=== PATIENT | male | born 1955 | race African-American/Black ===

== ENCOUNTER 2018-04-23 10:45 | Outpatient (CLI) | payer OTHER ==
--- NOTE | 2018-04-23 13:43 | MRI ---
MRI CERVICAL SPINE WITHOUT IV CONTRAST: Date: 04/23/18 HISTORY: Cervical spondylosis with myelopathy. Left-sided weakness for 1 year. COMPARISON: None available. FINDINGS: There is mild volume loss involving the limited visualized base of the brain. Cervicomedullary juncti on has a normal MRI appearance. There is mild nonspecific heterogeneity of the bone marrow with increased T2-weighted subcentimeter f ocus in the C6 vertebral body which may represent a small hemangioma versus focal area of fat. C2-3 Level: There is disc osteophyte complex present nearing the ventral subarachnoid space. The yessi ral foramina are patent. C3-4 Level: There is a broad based disc osteophyte complex which effaces the ventral subarachnoid sp ramandeep and flattens the anterior aspect of the spinal cord, but there is normal signal intensity in the spinal cord. Mild facet degenerative changes are present at this level. There is moderate left and mi ld to moderate right-sided neural foraminal narrowing. C4-5 Level: There is a broad based disc osteophyte complex with a central disc protrusion. This narr ows the ventral subarachnoid space with flattening of the anterior aspect of the spinal cord, but the re is normal signal intensity in the spinal cord. There are mild facet degenerative changes present, greater on the left. Right neural foramen is patent, but there is mild left-sided neural foraminal na rrowing. C5-6 Level: There is a broad based disc osteophyte complex with central disc protrusion. There is na rrowing of the ventral subarachnoid space with resultant flattening of the anterior aspect of the spi nal cord. Neural foramina are patent. C6-7 Level: There is a mild disc osteophyte complex which narrows the ventral subarachnoid space. Th ere is slight flattening of the anterior aspect of the spinal cord with normal signal intensity in th e spinal cord. The right neural foramen is patent, but there is mild left-sided neural foraminal narr owing. C7-T1 Level: There is no disc bulge or disc herniation. The central spinal canal and neural foramina are patent. IMPRESSION: Multilevel degenerative changes in the cervical spine as described above. POS: EMILEE
--- NOTE | 2018-04-23 13:43 | MRI ---
NONCONTRAST MRI LUMBAR SPINE: Date: 04-23-18 History: Compression fracture. Patient complains of low back pain with left sided weakness for one ye ar. Comparison: CT abdomen and pelvis, 03-06-16. FINDINGS: Retroperitoneal structures demonstrate a normal MRI appearance. There is generalized heterogeneity of the bone marrow which is nonspecific and may be related to conv ersion to red marrow. There is remote compression fracture involving the superior endplate of the L1 vertebral body. Conus medullaris is normal in appearance and terminates at the superior endplate of the L2 vertebral body. T12-L1: There is minimal disc bulge. The central spinal canal and neural foramina are patent. L1-2: There is no significant disc bulge or disc herniation. Central spinal canal and neural foramina are patent. L2-3: There is minimal disc osteophyte complex present. Mild facet degenerative changes are normal. T he central spinal canal is patent. There is no significant bilateral neural foraminal narrowing. L3-4: There is a minimal disc osteophyte complex present with facet hypertrophic change and mild liga mentous thickening. There is no significant narrowing of the central spinal canal, but there is mild bilateral neural foraminal narrowing present. L4-5: There is a mild broad based disc osteophyte complex present. Facet hypertrophic changes and lig amentous thickening are noted. There is no significant narrowing of the central spinal canal. There i s mild bilateral neural foraminal narrowing, greater on the left. L5-S1: There is no disc bulge or disc herniation. Central spinal canal is patent. Facet hypertrophic changes are seen bilaterally which does result in mild to moderate bilateral neural foraminal narrowi ng. IMPRESSION: 1. Remote compression fracture superior endplate of L1 vertebral body with stable degree of height lo ss compared to the study in 2016. 2. Nonspecific heterogeneity of the bone marrow. 3. Mild degenerative changes in the lumbar spine. POS: EMILEE
== END 2018-04-23 10:46 | disposition home or self-care (01) ==
LOC: MRI 10:45
PROVIDERS: ATTEND Neurological Surgery
DX: M47.12 Other spondylosis with myelopathy, cervical region (principal); M47.816 Spondylosis without myelopathy or radiculopathy, lumbar region; M89.8X9 Other specified disorders of bone, unspecified site; Z87.81 Personal history of (healed) traumatic fracture
CPT/HCPCS: 72141; 72148

== ENCOUNTER 2019-07-15 02:25 | Day surgery (SDC) | payer OTHER, SELFPAY ==
--- NOTE | 2019-07-15 06:08 | OP ---
DATE OF PROCEDURE: 07/15/2019 PROCEDURES PERFORMED: 1. Esophagoscopy with disimpaction of esophageal foreign body. 2. Balloon dilation of the upper esophageal stricture to stage II with a balloon 12 to 15 mm. PREOPERATIVE DIAGNOSIS: Meat impaction. DESCRIPTION OF PROCEDURE: The patient was intubated and was given sedation by Anesthesia Department. The patient was turned onto his left lateral position. A bite block was placed. A Pentax videogastroscope under direct vision passed down the oropharynx into the upper esophagus. As soon as the scope entered the upper esophagus, he had a meat piece stuck there. Used difficult maneuvers to scope because of the location of the meat piece. Attempt was tried to snare it with polypectomy snare. Although the snare was encircled the meat piece, upon closing the meat piece did not break off. An IV glucagon 1 mg was given. After the IV glucagon insufflation, I was able to push the meat piece further into the distal esophagus and passed down. He had a very tight stricture in the area of impaction. The scope could not be advanced beyond the stricture. So, I elected to do balloon dilation with a balloon size 12 to 15 mm. The balloon was inflated to stage I for 2 minutes under endoscopic guidance and to stage II for another 2 more minutes. Following dilation, actually no change in the esophageal lumen seen. The stricture appears very tight and fibrotic and would not really open up. So, I elected to not do anymore dilation. The patient scope changed to a very slim scope and again another esophagoscopy was done. The endoscope could not be advanced past the stricture. The foreign body has gradually gone down into the esophagus. I am not sure if it gone all the way to stomach or it has gone beyond the stricture. I was able to advance the balloon down the esophagus easily without any resistance. The scope was removed. DISCHARGE PLANNING: This is a 63-year-old male came for EGD because of several foreign body. Initially, he was in [facility] and was transferred subsequently here. He underwent esophagoscopy with disimpaction. He also had a very tight upper esophageal stricture, which appears very fibrotic. Although the balloon dilation was carried out to stage II, the stricture would not open. So, I elected not to do anymore further dilation. The patient is being discharged back to retirement. We will try some clear liquids before he can go home. If he is able to swallow liquids without any coughing, choking, or vomiting, we will discharge the patient back to retirement. He will be brought back as an outpatient in the near future. He will need repeated dilatation, probably under fluoroscopic guidance because of the very tight stricture. The balloon dilation did not help and I believe mostly we need some Savary dilation under fluoroscopy guidance. Job ID: [id number]
--- NOTE | 2019-07-15 07:08 | HP ---
REASON FOR CONSULTATION: Dysphagia, food bolus impaction of the esophagus. HISTORY OF PRESENT ILLNESS: Mr. Vivian Joya is a 63-year-old male who is a jail resident in [place]. Apparently, he was eating some pork chops during dinner last night and got the meat stuck to esophagus. Subsequently, he tried to drink some water, and the water would not go down. He was seen in the ER in [place] and was given IV glucagon; however, he was not able to pass the food bolus down. The patient has had similar episodes in the past and usually he drinks some water or tries coughing. This time nothing really helped. He is very comfortable. Denies any chest discomfort or dyspnea. He had no other relevant history. ALLERGIES: PENICILLIN. SOCIAL HISTORY: The patient does not smoke or drink alcohol. MEDICAL ILLNESSES: 1. Hypertension. 2. Hypothyroidism. 3. Chronic anxiety. 4. Seizure disorder. 5. Coronary artery disease, status post stent placement in 1999. 6. He is status post CVA with residual left arm weakness. PAST SURGICAL HISTORY: No major surgeries except for stent placement in the past. FAMILY HISTORY: Hypertension, heart disease. MEDICATIONS: Include: 1. Keppra. 2. Lisinopril. 3. Levothyroxine. 4. Hydrocodone. 5. Clopidogrel. 6. Aspirin. 7. Xanax. SYSTEM REVIEW: A 10-point system review, unremarkable except he is not able to use his left arm. PHYSICAL EXAMINATION: GENERAL: Appears comfortable. He is awake, alert, oriented to time, place, and person. VITAL SIGNS: Stable. He is afebrile. Pulse is 76, and blood pressure 150/72. HEENT: Conjunctivae clear. NECK: Supple. No adenitis or thyromegaly noted. CARDIOVASCULAR SYSTEM: First and second heart sounds heard. LUNGS: Clear to auscultation. ABDOMEN: Soft. Abdomen is nondistended. Abdomen is nontender. There is no rebound or guarding. He has no operative scars. EXTREMITIES: No edema. He has weakness over the left upper extremity and immobility. LABORATORY DATA: Nothing done today. CLINICAL IMPRESSION: A 63-year-old male with dysphagia, food bolus impaction of the esophagus. He is clinically very stable. He is not frothing or coughing. PLAN: EGD and remove foreign body. I did see Mr. Joya in the ER and explained the procedure in detail. He was explained the risks of bleeding, aspiration, perforation. He fully understood and agreed. Job ID: [id number]
[2019-07-15] MEDS ORDERED: PROPOFOL 200 MG/20 ML VIAL ONE (09:46)
[2019-07-15] MEDS ORDERED: Esmolol 100 MG/10 ML VIAL ONE (09:46)
[2019-07-15] MEDS ORDERED: diphenhydrAMINE 50 MG/ML VIAL ONE (09:46)
[2019-07-15] MEDS ORDERED: Ondansetron PF 4 MG/2 ML Vial ONE (09:46)
== END 2019-07-15 06:36 ==
LOC: ERS 02:25 → SDC/OP 04:10
PROVIDERS: ATTEND Internal Medicine Gastroenterology
PROC: 0DC18ZZ Extirpation of Matter from Upper Esophagus, Via Natural or Artificial Opening Endoscopic (ICD-10-PCS; principal; 2019-07-15)
PROC: 0D718ZZ Dilation of Upper Esophagus, Via Natural or Artificial Opening Endoscopic (ICD-10-PCS; principal; 2019-07-15)
DX: T18.128A Food in esophagus causing other injury, initial encounter (principal); K22.2 Esophageal obstruction; I10 Essential (primary) hypertension; E03.9 Hypothyroidism, unspecified; F41.9 Anxiety disorder, unspecified; G40.909 Epilepsy, unspecified, not intractable, without status epilepticus; I25.110 Atherosclerotic heart disease of native coronary artery with unstable angina pectoris; I69.334 Monoplegia of upper limb following cerebral infarction affecting left non-dominant side; E78.5 Hyperlipidemia, unspecified; E11.9 Type 2 diabetes mellitus without complications; F17.220 Nicotine dependence, chewing tobacco, uncomplicated; F12.10 Cannabis abuse, uncomplicated; F14.10 Cocaine abuse, uncomplicated; Z79.02 Long term (current) use of antithrombotics/antiplatelets; Z79.84 Long term (current) use of oral hypoglycemic drugs; Z79.82 Long term (current) use of aspirin; Z79.899 Other long term (current) drug therapy; Z88.0 Allergy status to penicillin; Z95.5 Presence of coronary angioplasty implant and graft
CPT/HCPCS: 96365; J1200; J1610; J1953; J2405; J2704

== ENCOUNTER 2022-05-08 13:57 | Inpatient (IN) | payer OTHER ==
[2022-05-08 17:58] VITALS: BMI 28.2
[2022-05-08] MEDS ORDERED: Aspirin 81 mg Enteric Coated Tablet PO SCH (18:15)
[2022-05-08] MEDS ORDERED: Enoxaparin Sodium 40 MG/0.4 ML SYRINGE SC SCH (18:15)
[2022-05-08] MEDS: Atorvastatin Calcium 40 MG TAB PO SCH (21:03)
[2022-05-09 01:21] LABS: SARS-CoV-2 NAA Rapid Test Not Detected (NotDetected)
[2022-05-09 05:58] LABS: Cardiac Risk 3.3 (Less than 4.5)
[2022-05-09] MEDS: Aspirin 81 mg Enteric Coated Tablet PO SCH (08:57)
[2022-05-09] MEDS: Enoxaparin Sodium 40 MG/0.4 ML SYRINGE SC SCH (08:57)
[2022-05-09] MEDS: Clopidogrel Bisulfate 75 MG TAB PO SCH (08:57)
[2022-05-09] MEDS ORDERED: ALPRAZolam 0.25 MG TAB PO PRN (09:07)
[2022-05-09] MEDS ORDERED: levETIRAcetam 500 MG TAB PO SCH ×2 (09:15→21:00)
[2022-05-09] MEDS ORDERED: Dextrose 5% in Water 1,000 ML IV PRN (10:17)
[2022-05-09] MEDS ORDERED: Dextrose 50% Abboject 50 ML SYRINGE SLOW IVP PRN (10:17)
[2022-05-09] MEDS ORDERED: HumaLOG 300 UNITS/3 ML VIAL SC PRN (10:17)
[2022-05-09] MEDS: Gabapentin 300 MG CAP PO SCH ×2 (15:04→20:58)
[2022-05-09] MEDS: levETIRAcetam 500 mg/5 ml Oral Solution PO SCH (20:58)
[2022-05-09] MEDS: Atorvastatin Calcium 40 MG TAB PO SCH (20:58)
[2022-05-10] MEDS ORDERED: Levothyroxine Sodium 75 MCG TAB PO SCH (06:00)
[2022-05-10 06:44] LABS: Anion Gap 13 mmol/L (10-20); BUN (Urea Nitrogen) 9 mg/dL (8.4-25.7); Calc. Creatinine Clearance 85 mL/min (70-130); Calcium 10.2 mg/dL (7.8-10.44); Carbon Dioxide 22 mmol/L (23-31); Chloride 106 mmol/L (98-107); Estimated GFR 88; Glucose 85 mg/dL (80-115); Potassium 3.8 mmol/L (3.5-5.1); Sodium 137 mmol/L (136-145)
[2022-05-10 09:58] LABS: Hemoglobin 16.5 g/dL (14.0-18.0); Mean Corpuscular HGB CONC 32.8 g/dL (32.0-36.0); Mean Corpuscular Hemoglobin 30.8 pg (27.0-31.0); Mean Corpuscular Volume 94.1 fl (78.0-98.0); Mean Platelet Volume 6.8 fL (7.4-10.4); Platelet Count 231 10x3/uL (130-400); RBC Distribution Width 12.6 % (11.5-14.5); Red Blood Cell (RBC) Count 5.34 mill/uL (4.70-6.10)
[2022-05-10] MEDS: Enoxaparin Sodium 40 MG/0.4 ML SYRINGE SC SCH (09:59)
[2022-05-10] MEDS: levETIRAcetam 500 mg/5 ml Oral Solution PO SCH (09:59)
[2022-05-10] MEDS: Gabapentin 300 MG CAP PO SCH ×2 (09:59→15:40)
[2022-05-10] MEDS: Aspirin 81 mg Enteric Coated Tablet PO SCH (09:59)
[2022-05-10] MEDS: Clopidogrel Bisulfate 75 MG TAB PO SCH (09:59)
[2022-05-10 12:12] LABS: Eosinophils 4 % (0-10); Lymphocytes 50 % (21-51); MDiff Complete? YES; Monocytes 5 % (0-10); Neutrophil 41 % (42-75); Platelet Morphology Comment Appears Adequate; RBC Morphology Normal
[2022-05-10 15:39] VITALS: TEMP 97.6
[2022-05-10 16:20] VITALS: BP 130/86
[2022-05-11] MEDS ORDERED: FLU VACC QS2022-23(65YR UP)/PF 240 MCG/0.7 ML SYRINGE IM ONE (18:15)
== END 2022-05-10 19:15 | DRG 69 ==
LOC: NEURO 13:57
PROVIDERS: ADMIT Internal Medicine; ATTEND Family Medicine
PROC: 4A10X4Z Monitoring of Central Nervous Electrical Activity, External Approach (ICD-10-PCS; principal; 2022-05-08)
DX: G45.9 Transient cerebral ischemic attack, unspecified (principal); I69.354 Hemiplegia and hemiparesis following cerebral infarction affecting left non-dominant side; I65.21 Occlusion and stenosis of right carotid artery; E11.9 Type 2 diabetes mellitus without complications; I10 Essential (primary) hypertension; E78.5 Hyperlipidemia, unspecified; I25.10 Atherosclerotic heart disease of native coronary artery without angina pectoris; K21.9 Gastro-esophageal reflux disease without esophagitis; G40.909 Epilepsy, unspecified, not intractable, without status epilepticus; Z20.822 Contact with and (suspected) exposure to COVID-19; Z88.0 Allergy status to penicillin; Z79.82 Long term (current) use of aspirin; Z79.899 Other long term (current) drug therapy; Z95.5 Presence of coronary angioplasty implant and graft
CPT/HCPCS: 36415; 36416; 70551; 80048; 80061; 85025; 93306; 95712; 95819; 95957; J1650

== ENCOUNTER 2022-07-22 18:00 | Outpatient (CLI) | payer MEDICARE, OTHER | END 2022-07-22 18:01 | disposition home or self-care (01) | LOC: SLEEPLAB 18:00 | PROVIDERS: ATTEND Family Medicine | DX: G47.33 Obstructive sleep apnea (adult) (pediatric) (principal); E11.9 Type 2 diabetes mellitus without complications; G47.00 Insomnia, unspecified; Z86.73 Personal history of transient ischemic attack (TIA), and cerebral infarction without residual deficits; I25.10 Atherosclerotic heart disease of native coronary artery without angina pectoris; G47.31 Primary central sleep apnea | CPT/HCPCS: 95800 ==

== ENCOUNTER 2022-12-22 11:38 | Observation (INO) | payer OTHER ==
[~2022-12-22 11:38] MED LIST: Iopamidol-370 76% 500 ML MDV (1 ML CHARGE) ONE
[2022-12-22 12:18] LABS: #Eosinphils 0.1 thou/uL (0.0-0.7); #Monocytes 0.5 thou/uL (0.11-0.59); #Neutrophils 3.8 thou/uL (1.40-6.50); %Basophils 0.3 % (0.0-1.0); %Eosinophils 1.5 % (0.0-10.0); %Lymphocytes 32.9 % (21.0-51.0); %Monocytes 7.7 % (0.0-10.0); %Neutrophils 57.4 % (42.0-75.0); Hemoglobin 14.5 g/dL (14.0-18.0); Mean Corpuscular Hemoglobin 30.8 pg (27.0-31.0); Mean Corpuscular Volume 93.2 fl (78.0-98.0); Mean Platelet Volume 8.9 fL (7.4-10.4); Platelet Count 212 10x3/uL (130-400); RBC Distribution Width 13.7 % (11.5-14.5); Red Blood Cell (RBC) Count 4.71 mill/uL (4.70-6.10); White Blood Cell (WBC) Count 6.5 10x3/uL (4.8-10.8)
[2022-12-22 12:32] LABS: INR-International Normal Ratio 1.1; PTT 26.4 sec (22.9-36.1); Prothrombin Time 14.1 sec (12.0-14.7)
[2022-12-22] MEDS ORDERED: Aspirin Chewable 81 MG TAB ONE (13:11)
[2022-12-22 13:14] LABS: ALT (SGPT) 15 U/L (8-55); AST (SGOT) 15 U/L (5-34); Alkaline Phosphatase 117 U/L (40-110); Anion Gap 16 mmol/L (10-20); BUN (Urea Nitrogen) 10 mg/dL (8.4-25.7); Bilirubin, Total 0.3 mg/dL (0.2-1.2); CK (CPK) 81 U/L (30-200); Calc. Creatinine Clearance 0 mL/min (70-130); Calcium 10.7 mg/dL (7.8-10.44); Carbon Dioxide 20 mmol/L (23-31); Chloride 104 mmol/L (98-107); Estimated GFR 89; Glucose 102 mg/dL (80-115); Magnesium 1.9 mg/dL (1.6-2.6); Potassium 3.9 mmol/L (3.5-5.1); Sodium 136 mmol/L (136-145)
[2022-12-22 14:20] LABS: Bacteria/HPF None Seen HPF (None Seen); Bilirubin Negative (Negative); Blood, Urine Negative (Negative); CAUTI Indications for Culture Alt mental st,lethar; Clarity Clear (Clear); Glucose, Urine (Dipstick) Normal (Negative); Ketone, Urine Negative (Negative); Leukocyte 75 Leu/uL (Negative); Nitrite Negative (Negative); Protein, Urine (Dipstick) Negative (Neg-Trace); RBC/HPF 0-3 HPF (0-3); Specific Gravity, Urine 1.023 (1.002-1.036); Squamous Epithelial 0-3 HPF (0-3); Urobilinogen Normal mg/dL (Less than 2)
[2022-12-22 14:23] LABS: Urine Culture Reflex No No
[2022-12-22 14:44] LABS: Hemoglobin A1c 5.5 % (4.0-6.0)
[2022-12-22] MEDS: Nicotine 14 MG PATCH TD SCH (16:20)
[2022-12-23 05:41] LABS: Cardiac Risk 3.3 (Less than 4.5)
[2022-12-23 08:34] VITALS: BMI 28.0
[2022-12-23] MEDS ORDERED: Aspirin 81 mg Enteric Coated Tablet PO SCH (09:00)
[2022-12-23] MEDS ORDERED: levETIRAcetam 500 MG TAB PO SCH ×2 (09:30→21:00)
[2022-12-23] MEDS ORDERED: Nicotine 14 MG PATCH ONE (10:57)
[2022-12-23] MEDS: Nicotine 14 MG PATCH TD SCH (11:01)
[2022-12-23] MEDS: Gabapentin 300 MG CAP PO SCH ×2 (15:08→19:54)
[2022-12-23] MEDS ORDERED: Clopidogrel Bisulfate 75 MG TAB PO SCH (17:30)
[2022-12-23 20:06] VITALS: BP 150/101; TEMP 97.6
[2022-12-23] MEDS ORDERED: Heparin 5,000 UNITS/ML VIAL SC SCH (21:00)
[2022-12-23] MEDS ORDERED: Atorvastatin Calcium 40 MG TAB PO SCH (21:00)
[2022-12-24] MEDS ORDERED: Levothyroxine Sodium 75 MCG TAB PO SCH (06:00)
[2022-12-24] MEDS ORDERED: Levothyroxine Sodium 50 MCG TAB PO SCH (06:00)
[2022-12-24] MEDS ORDERED: Clopidogrel Bisulfate 75 MG TAB PO SCH (21:00)
== END 2022-12-23 21:00 ==
LOC: ERS 11:38 → 2SE 13:57 → ERHOLD 14:09 → 2SE 12-23 14:18
PROVIDERS: ADMIT Internal Medicine; ATTEND Internal Medicine
DX: G45.9 Transient cerebral ischemic attack, unspecified (principal); E78.5 Hyperlipidemia, unspecified; E03.9 Hypothyroidism, unspecified; I12.9 Hypertensive chronic kidney disease with stage 1 through stage 4 chronic kidney disease, or unspecified chronic kidney disease; N18.2 Chronic kidney disease, stage 2 (mild); I25.2 Old myocardial infarction; E11.9 Type 2 diabetes mellitus without complications; I25.10 Atherosclerotic heart disease of native coronary artery without angina pectoris; G40.909 Epilepsy, unspecified, not intractable, without status epilepticus; F19.10 Other psychoactive substance abuse, uncomplicated; D50.9 Iron deficiency anemia, unspecified; Z79.890 Hormone replacement therapy; Z79.82 Long term (current) use of aspirin; Z79.899 Other long term (current) drug therapy; Z79.84 Long term (current) use of oral hypoglycemic drugs; Z86.73 Personal history of transient ischemic attack (TIA), and cerebral infarction without residual deficits; Z88.0 Allergy status to penicillin; Z95.5 Presence of coronary angioplasty implant and graft
CPT/HCPCS: 70450; 70496; 70498; 70551; 71045; 80061; 81001; 82550; 82962; 83036; 83735; 84484; 85610; 85730; 93005; 97530; 99285; G0378 ×3; 36415; 36416; 80053; 84443; 85025; Q9967

== ENCOUNTER 2023-08-05 16:49 | Inpatient (IN) | payer MEDICARE, MEDICAID ==
[2023-08-05 17:43] LABS: #Monocytes 0.6 thou/uL (0.11-0.59); %Basophils 0.2 % (0.0-1.0); %Lymphocytes 15.5 % (21.0-51.0); %Monocytes 6.7 % (0.0-10.0); %Neutrophils 77.3 % (42.0-75.0); Hematocrit 52.2 % (42.0-52.0); Hemoglobin 17.5 g/dL (14.0-18.0); Mean Corpuscular HGB CONC 33.5 g/dL (32.0-36.0); Mean Corpuscular Hemoglobin 30.2 pg (27.0-31.0); Mean Platelet Volume 9.5 fL (7.4-10.4); Platelet Count 226 10x3/uL (130-400); RBC Distribution Width 13.2 % (11.5-14.5)
[2023-08-05 19:23] LABS: Bacteria/HPF 3+ HPF (None Seen); Bilirubin Negative (Negative); Blood, Urine 3+ (Negative); CAUTI Indications for Culture Alt mental st,lethar; Clarity Clear (Clear); Glucose, Urine (Dipstick) Normal (Negative); Ketone, Urine Negative (Negative); Leukocyte Negative Leu/uL (Negative); Nitrite Negative (Negative); Protein, Urine (Dipstick) 30 mg/dL (Neg-Trace); Squamous Epithelial 0-3 HPF (0-3); pH, Urine 6.5 (5.0-9.0)
[2023-08-05 19:24] LABS: Urine Culture Reflex No No
[2023-08-05 19:26] LABS: INR-International Normal Ratio 1.1; Prothrombin Time 13.8 sec (12.0-14.7)
[2023-08-05 19:27] LABS: PTT 29.5 sec (22.9-36.1)
[2023-08-05 20:47] LABS: Albumin 4.3 g/dL (3.4-4.8)
[2023-08-05 20:48] LABS: Chloride 98 mmol/L (98-107); Sodium 131 mmol/L (136-145)
[2023-08-05 20:49] LABS: Calcium 10.4 mg/dL (7.8-10.44)
[2023-08-05 20:50] LABS: Globulin 3.6 g/dL (2.4-3.5); Glucose 93 mg/dL (80-115); Protein, Total 7.9 g/dL (5.8-8.1)
[2023-08-05 20:51] LABS: Anion Gap 13 mmol/L (10-20); Carbon Dioxide 24 mmol/L (23-31)
[2023-08-05 20:52] LABS: Bilirubin, Total 0.6 mg/dL (0.2-1.2)
[2023-08-05 20:53] LABS: Alkaline Phosphatase 102 U/L (40-110); Calc. Creatinine Clearance 0 mL/min (70-130); Estimated GFR 69
[2023-08-05 20:54] LABS: BUN (Urea Nitrogen) 11 mg/dL (8.4-25.7)
[2023-08-05 20:55] LABS: ALT (SGPT) 31 U/L (8-55); AST (SGOT) 94 U/L (5-34)
[2023-08-05 21:08] LABS: CK (CPK) 4985 U/L (30-200)
[2023-08-05] MEDS ORDERED: Acetaminophen 325 MG TAB PO PRN (21:24)
[2023-08-05] MEDS ORDERED: Ondansetron PF 4 MG/2 ML Vial IVP PRN (21:24)
[2023-08-05 21:25] LABS: Amphetamine Not Detected (NotDetected); Barbiturates Screen Not Detected (NotDetected); Benzodiazepine Screen Not Detected (NotDetected); Cocaine Metabolite Screen Not Detected (NotDetected); Methadone Not Detected (NotDetected); Methamphetamine Not Detected (NotDetected); Opiate Screen Not Detected (NotDetected); Oxycodone Screen Not Detected (NotDetected); Phencyclidine (PCP) Not Detected (NotDetected); THC/Cannabinoid Screen Not Detected (NotDetected); Tricyclic Screen Not Detected (NotDetected)
[2023-08-05] MEDS ORDERED: Glucagon 1 MG/ML KIT IM PRN (21:27)
[2023-08-05] MEDS ORDERED: HumaLOG 300 UNITS/3 ML VIAL SC PRN ×2 (21:27)
[2023-08-05] MEDS ORDERED: Dextrose 50% Abboject 50 ML SYRINGE SLOW IVP PRN (21:27)
[2023-08-05] MEDS ORDERED: Dextrose 5% in Water 1,000 ML IV PRN (21:27)
[2023-08-05 22:05] LABS: Actual Bicarbonate (HCO3v) 24.1 mEq/L (22-28); Base Excess 0.9 mEq/L (-2.0 to +3.0); Calcium, Ionized (venous) 1.25 mmol/L (1.16-1.32); Chloride (VBG) 97 mmol/L (98-106); Hematocrit-VBG 50 % (42.0-52.0); Hemoglobin (Hb) 16.9 g/dL (12.6-17.4); Potassium (VBG) 4.05 mmol/L (3.70-5.30); Sodium 135 mmol/L (133-146)
[2023-08-05] MEDS: levETIRAcetam 500 MG (5 mL) VIAL SLOW IVP SCH (22:30)
[2023-08-05] MEDS: Sodium Chloride 0.9% 1,000 ML IV SCH (22:30)
[2023-08-05] MEDS ORDERED: Vancomycin 1 GM/200 ML (FROZEN) BAG ONE (22:40)
[2023-08-05] MEDS ORDERED: levETIRAcetam 500 MG (5 mL) VIAL ONE (22:40)
[2023-08-05] MEDS ORDERED: Acetaminophen 650 MG Suppository ONE (22:40)
[2023-08-05] MEDS ORDERED: Sodium Chloride 0.9% 100 ML ONE (22:41)
[2023-08-05] MEDS: Acetaminophen 650 MG Suppository PR PRN (22:54)
[2023-08-06] MEDS: Cefepime 1 GM in Sodium Chloride 0.9% 100 ML IVPB SCH (01:00)
[2023-08-06] MEDS ORDERED: Sodium Chloride 0.9% 100 ML ONE (04:04)
[2023-08-06] MEDS ORDERED: Aspirin Chewable 81 MG TAB ONE ×2 (04:04→08:26)
[2023-08-06] MEDS ORDERED: Cefepime 1 GM VIAL ONE (04:04)
[2023-08-06 05:33] LABS: #Monocytes 0.5 thou/uL (0.11-0.59); #Neutrophils 3.3 thou/uL (1.40-6.50); %Basophils 0.3 % (0.0-1.0); %Lymphocytes 37.2 % (21.0-51.0); %Monocytes 8.9 % (0.0-10.0); %Neutrophils 53.4 % (42.0-75.0); Hematocrit 48.9 % (42.0-52.0); Hemoglobin 16.8 g/dL (14.0-18.0); Mean Corpuscular HGB CONC 34.4 g/dL (32.0-36.0); Mean Corpuscular Hemoglobin 30.8 pg (27.0-31.0); Mean Corpuscular Volume 89.7 fl (78.0-98.0); Mean Platelet Volume 8.8 fL (7.4-10.4); Platelet Count 179 10x3/uL (130-400); RBC Distribution Width 13.2 % (11.5-14.5); Red Blood Cell (RBC) Count 5.45 mill/uL (4.70-6.10); White Blood Cell (WBC) Count 6.1 10x3/uL (4.8-10.8)
[2023-08-06 05:43] LABS: Hemoglobin A1c 5.9 % (4.0-6.0)
[2023-08-06] MEDS: Aspirin 81 mg Enteric Coated Tablet PO SCH ×2 (05:46→09:19)
[2023-08-06 06:02] LABS: Anion Gap 12 mmol/L (10-20); BUN (Urea Nitrogen) 11 mg/dL (8.4-25.7); Calc. Creatinine Clearance 0 mL/min (70-130); Calcium 9.4 mg/dL (7.8-10.44); Carbon Dioxide 23 mmol/L (23-31); Cardiac Risk 4.4 (Less than 4.5); Chloride 105 mmol/L (98-107); Cholesterol 191 mg/dl (< 200 Desired); Estimated GFR 83; Glucose 85 mg/dL (80-115); HDL Cholesterol 43 mg/dL (>60 Neg Risk); LDL Cholesterol, Calculated 137 mg/dL; Potassium 3.6 mmol/L (3.5-5.1); Sodium 136 mmol/L (136-145); Triglycerides 53 mg/dL (Less than 150)
[2023-08-06 06:03] LABS: ALT (SGPT) 45 U/L (8-55); AST (SGOT) 153 U/L (5-34); Albumin 3.7 g/dL (3.4-4.8); Alkaline Phosphatase 88 U/L (40-110); Bilirubin, Direct 0.2 mg/dL (0.1-0.3); Bilirubin, Total 0.5 mg/dL (0.2-1.2); Protein, Total 6.9 g/dL (5.8-8.1)
[2023-08-06 06:15] LABS: CK (CPK) 7535 U/L (30-200)
[2023-08-06 06:19] VITALS: BMI 23.1
[2023-08-06] MEDS: Vancomycin (BATCH) 1.5 GM in Premix 1 BAG IVPB SCH (08:09)
[2023-08-06] MEDS ORDERED: Clopidogrel Bisulfate 75 MG TAB ONE (08:26)
[2023-08-06] MEDS ORDERED: levETIRAcetam 500 MG TAB ONE ×2 (08:26→21:43)
[2023-08-06 08:41] LABS: Influenza A by NAA Not Detected (NotDetected); Influenza B by NAA Not Detected (NotDetected); RSV by NAA Not Detected (NotDetected); SARS-CoV-2 NAA Rapid Test Not Detected (NotDetected)
[2023-08-06] MEDS: levETIRAcetam 500 MG TAB PO SCH (09:20)
[2023-08-06] MEDS: Clopidogrel Bisulfate 75 MG TAB PO SCH (09:20)
[2023-08-06] MEDS ORDERED: Vancomycin 1 GM/200 ML (FROZEN) BAG ONE (17:30)
[2023-08-06] MEDS: Vancomycin 1 GM in Premix 1 BAG IVPB SCH (17:44)
[2023-08-06] MEDS ORDERED: Vancomycin HCl 750 MG in Sodium Chloride 0.9% 250 ML 250 ML IVPB SCH (18:00)
[2023-08-07] MEDS: Artificial Tear Sol 15 ML BOT EA EYE SCH (01:21)
[2023-08-07] MEDS: Cefepime 1 GM in Sodium Chloride 0.9% 100 ML IVPB SCH (01:53)
[2023-08-07] MEDS: Levothyroxine Sodium 75 MCG TAB PO SCH (06:04)
[2023-08-07 06:26] LABS: #Monocytes 0.6 thou/uL (0.11-0.59); #Neutrophils 3.9 thou/uL (1.40-6.50); %Basophils 0.1 % (0.0-1.0); %Eosinophils 0.1 % (0.0-10.0); %Lymphocytes 34.3 % (21.0-51.0); %Monocytes 8.1 % (0.0-10.0); %Neutrophils 57.3 % (42.0-75.0); Hematocrit 44.1 % (42.0-52.0); Hemoglobin 15.2 g/dL (14.0-18.0); Mean Corpuscular HGB CONC 34.5 g/dL (32.0-36.0); Mean Corpuscular Hemoglobin 30.3 pg (27.0-31.0); Mean Corpuscular Volume 87.8 fl (78.0-98.0); Platelet Count 202 10x3/uL (130-400); Red Blood Cell (RBC) Count 5.02 mill/uL (4.70-6.10); White Blood Cell (WBC) Count 6.8 10x3/uL (4.8-10.8)
[2023-08-07 06:50] LABS: Anion Gap 13 mmol/L (10-20); BUN (Urea Nitrogen) 10 mg/dL (8.4-25.7); Calc. Creatinine Clearance 86 mL/min (70-130); Calcium 9.6 mg/dL (7.8-10.44); Carbon Dioxide 24 mmol/L (23-31); Chloride 106 mmol/L (98-107); Estimated GFR 94; Glucose 102 mg/dL (80-115); Potassium 3.9 mmol/L (3.5-5.1); Sodium 139 mmol/L (136-145)
[2023-08-07 07:15] LABS: CK (CPK) 5439 U/L (30-200)
[2023-08-07] MEDS: Latanoprost 0.005% Ophth Soln 2.5 ml Bottle R EYE SCH ×2 (09:25→20:18)
[2023-08-07] MEDS: metFORMIN 500 MG TAB PO SCH (09:25)
[2023-08-07] MEDS: Cefepime 2 GM in Sodium Chloride 0.9% 100 ML IVPB SCH (13:13)
[2023-08-07] MEDS ORDERED: Vancomycin 1 GM in Premix 1 BAG IVPB SCH ×2 (15:45→20:00)
[2023-08-07 19:06] LABS: Vancomycin, Trough 9.4 ug/mL
[2023-08-07] MEDS: Vancomycin (BATCH) 1.25 GM in Premix 1 BAG IVPB SCH (20:17)
[2023-08-07] MEDS: SYSTANE 0.3-0.4% EYE DROPS (30 ML) EA EYE SCH (20:19)
[2023-08-07] MEDS: traZODone HCl 50 MG TAB PO SCH (21:46)
[2023-08-08 05:54] LABS: #Eosinphils 0.1 thou/uL (0.0-0.7); #Monocytes 0.6 thou/uL (0.11-0.59); #Neutrophils 3.3 thou/uL (1.40-6.50); %Basophils 0.4 % (0.0-1.0); %Eosinophils 1.5 % (0.0-10.0); %Lymphocytes 41.2 % (21.0-51.0); %Neutrophils 48.8 % (42.0-75.0); Hematocrit 45.2 % (42.0-52.0); Hemoglobin 15.2 g/dL (14.0-18.0); Mean Corpuscular HGB CONC 33.6 g/dL (32.0-36.0); Mean Corpuscular Hemoglobin 30.1 pg (27.0-31.0); Mean Corpuscular Volume 89.5 fl (78.0-98.0); Mean Platelet Volume 9.5 fL (7.4-10.4); Platelet Count 232 10x3/uL (130-400); RBC Distribution Width 13.1 % (11.5-14.5); Red Blood Cell (RBC) Count 5.05 mill/uL (4.70-6.10); White Blood Cell (WBC) Count 6.9 10x3/uL (4.8-10.8)
[2023-08-08 06:32] LABS: Anion Gap 15 mmol/L (10-20); BUN (Urea Nitrogen) 10 mg/dL (8.4-25.7); Calc. Creatinine Clearance 78 mL/min (70-130); Calcium 9.7 mg/dL (7.8-10.44); Carbon Dioxide 21 mmol/L (23-31); Chloride 108 mmol/L (98-107); Estimated GFR 85; Glucose 79 mg/dL (80-115); Potassium 4.3 mmol/L (3.5-5.1); Sodium 140 mmol/L (136-145)
[2023-08-08] MEDS: Aspirin Chewable 81 MG TAB PO SCH (08:59)
[2023-08-08] MEDS: traZODone HCl 50 MG TAB PO SCH (20:10)
[2023-08-09] MEDS: Atorvastatin Calcium 40 MG TAB PO SCH (20:43)
[2023-08-10] MEDS: LevoFLOXacin 750 MG TAB PO SCH (06:18)
[2023-08-10 14:26] VITALS: BP 111/75; TEMP 97.8
== END 2023-08-10 15:00 | DRG 69 ==
LOC: ERS 16:49 → ERHOLD 20:41 → 2SE 08-06 23:48
PROVIDERS: ADMIT Internal Medicine; ATTEND Internal Medicine
PROC: 4A00X4Z Measurement of Central Nervous Electrical Activity, External Approach (ICD-10-PCS; principal; 2023-08-06)
DX: G45.9 Transient cerebral ischemic attack, unspecified (principal); G93.41 Metabolic encephalopathy; M62.82 Rhabdomyolysis; E87.1 Hypo-osmolality and hyponatremia; I50.32 Chronic diastolic (congestive) heart failure; N39.0 Urinary tract infection, site not specified; I25.10 Atherosclerotic heart disease of native coronary artery without angina pectoris; E78.5 Hyperlipidemia, unspecified; E11.9 Type 2 diabetes mellitus without complications; I11.0 Hypertensive heart disease with heart failure; D50.9 Iron deficiency anemia, unspecified; G40.909 Epilepsy, unspecified, not intractable, without status epilepticus; E03.9 Hypothyroidism, unspecified; B96.1 Klebsiella pneumoniae [K. pneumoniae] as the cause of diseases classified elsewhere; Z86.73 Personal history of transient ischemic attack (TIA), and cerebral infarction without residual deficits; I25.2 Old myocardial infarction; Z88.0 Allergy status to penicillin; Z79.82 Long term (current) use of aspirin; Z79.02 Long term (current) use of antithrombotics/antiplatelets; Z79.84 Long term (current) use of oral hypoglycemic drugs; Z79.899 Other long term (current) drug therapy; Z95.9 Presence of cardiac and vascular implant and graft, unspecified
CPT/HCPCS: 0241U; 36415; 36416; 70450; 70496; 70498; 70551; 71045; 80048; 80053; 80061; 80076; 80202; 80306; 81001; 82550; 82805; 83036; 83605; 84145; 84443; 85025; 85610; 85730; 87040; 87077; 87086; 87149; 87186; 93005; 93306; 95711; 95819; J0692; J1953; J3370; J3370-JW; J3490; J7050; Q9967

== ENCOUNTER 2024-03-23 13:39 | Inpatient (IN) | payer MEDICARE, MEDICAID ==
[2024-03-23 16:17] LABS: #Basophils Less than 0.03 10x3/uL (0.0-0.2); %Basophils 0.4 % (0.0-1.0); %Lymphocytes 42.5 % (21.0-51.0); %Monocytes 4.4 % (0.0-10.0); %Neutrophils 50.7 % (42.0-75.0); Hematocrit 46.1 % (42.0-52.0); Hemoglobin 15.5 g/dL (14.0-18.0); Mean Corpuscular HGB CONC 33.6 g/dL (32.0-36.0); Mean Corpuscular Hemoglobin 29.9 pg (27.0-31.0); Mean Platelet Volume 9.7 fL (7.4-10.4); Platelet Count 176 10x3/uL (130-400); RBC Distribution Width 13.4 % (11.5-14.5); Red Blood Cell (RBC) Count 5.18 mill/uL (4.70-6.10)
[2024-03-23 16:43] LABS: ALT (SGPT) 14 U/L (8-55); AST (SGOT) 15 U/L (5-34); Alkaline Phosphatase 136 U/L (40-110); Anion Gap 14 mmol/L (10-20); BUN (Urea Nitrogen) 11 mg/dL (8.4-25.7); Bilirubin, Total 0.4 mg/dL (0.2-1.2); Calc. Creatinine Clearance 0 mL/min (70-130); Calcium 10.8 mg/dL (7.8-10.44); Carbon Dioxide 29 mmol/L (23-31); Chloride 103 mmol/L (98-107); Estimated GFR 82; Globulin 3.8 g/dL (2.4-3.5); Glucose 84 mg/dL (80-115); Potassium 3.9 mmol/L (3.5-5.1); Protein, Total 7.8 g/dL (5.8-8.1); Sodium 142 mmol/L (136-145)
[2024-03-23 16:55] LABS: Troponin I Less than 0.010 ng/mL (< 0.028)
[2024-03-23] MEDS ORDERED: Aspirin Chewable 81 MG TAB ONE (17:34)
[2024-03-23] MEDS ORDERED: Ondansetron ODT 4 MG TAB PO PRN (18:24)
[2024-03-23] MEDS ORDERED: Dextrose 50% Abboject 50 ML SYRINGE SLOW IVP PRN (18:24)
[2024-03-23] MEDS ORDERED: Ondansetron PF 4 MG/2 ML Vial IVP PRN (18:24)
[2024-03-23] MEDS ORDERED: Nitroglycerin 0.4 MG TAB (25 Tab Bottle) SL PRN (18:24)
[2024-03-23] MEDS ORDERED: Dextrose 5% in Water 1,000 ML IV PRN (18:24)
[2024-03-23] MEDS ORDERED: Lorazepam 2 MG/ML VIAL SLOW IVP PRN (18:24)
[2024-03-23] MEDS ORDERED: Insulin Lispro 100 UNIT/ML 10 ML VIAL SC PRN ×2 (18:24)
[2024-03-23] MEDS ORDERED: Acetaminophen 325 MG TAB PO PRN (18:24)
[2024-03-23] MEDS ORDERED: Glucagon 1 MG/ML KIT IM PRN (18:24)
[2024-03-24 00:58] VITALS: BMI 26.5
[2024-03-24 02:21] LABS: Troponin I Less than 0.010 ng/mL (< 0.028)
[2024-03-24 04:45] LABS: #Basophils Less than 0.03 10x3/uL (0.0-0.2); %Basophils 0.4 % (0.0-1.0); %Eosinophils 2.5 % (0.0-10.0); %Lymphocytes 51.9 % (21.0-51.0); %Monocytes 6.2 % (0.0-10.0); Hematocrit 43.2 % (42.0-52.0); Hemoglobin 14.6 g/dL (14.0-18.0); Mean Corpuscular HGB CONC 33.8 g/dL (32.0-36.0); Mean Corpuscular Volume 88.7 fL (78.0-98.0); Mean Platelet Volume 9.2 fL (7.4-10.4); Platelet Count 216 10x3/uL (130-400); RBC Distribution Width 13.2 % (11.5-14.5); Red Blood Cell (RBC) Count 4.87 mill/uL (4.70-6.10)
[2024-03-24 05:03] LABS: Troponin I Less than 0.010 ng/mL (< 0.028)
[2024-03-24 05:10] LABS: Anion Gap 9 mmol/L (10-20); BUN (Urea Nitrogen) 8 mg/dL (8.4-25.7); Calc. Creatinine Clearance 99 mL/min (70-130); Calcium 7.5 mg/dL (7.8-10.44); Carbon Dioxide 21 mmol/L (23-31); Cardiac Risk 3.3 (Less than 4.5); Chloride 118 mmol/L (98-107); Cholesterol 87 mg/dl (< 200 Desired); Estimated GFR 100; Glucose 65 mg/dL (80-115); HDL Cholesterol 26 mg/dL (>60 Neg Risk); LDL Cholesterol, Calculated 53 mg/dL; Potassium 2.8 mmol/L (3.5-5.1); Sodium 145 mmol/L (136-145); Triglycerides 38 mg/dL (Less than 150)
[2024-03-24] MEDS: Levothyroxine Sodium 75 MCG TAB PO SCH (06:31)
[2024-03-24] MEDS: Isosorbide Mononitrate 30 MG ER.TAB PO SCH (07:57)
[2024-03-24] MEDS: Gabapentin 300 MG CAP PO SCH (07:57)
[2024-03-24] MEDS: Potassium Chloride 20 MEQ TAB PO SCH (07:57)
[2024-03-24] MEDS: metFORMIN 500 MG TAB PO SCH (07:57)
[2024-03-24] MEDS: Aspirin Chewable 81 MG TAB PO SCH (07:57)
[2024-03-24] MEDS: Cholecalciferol 1,000 UNITS (25 MCG) TAB PO SCH (07:57)
[2024-03-24] MEDS: Enoxaparin 40 MG (0.4 mL) SYRINGE SC SCH (07:58)
[2024-03-24] MEDS: levETIRAcetam 500 mg/5 ml Oral Solution PO SCH (07:58)
[2024-03-24] MEDS: Furosemide 40 MG TAB PO SCH (07:58)
[2024-03-24] MEDS: Aspirin 81 mg Enteric Coated Tablet PO SCH (07:59)
[2024-03-24] MEDS ORDERED: Regadenoson 0.4 MG/5 ML SYRINGE ONE (11:12)
[2024-03-24] MEDS: Atorvastatin Calcium 40 MG TAB PO SCH (20:43)
[2024-03-24] MEDS: Clopidogrel Bisulfate 75 MG TAB PO SCH (20:43)
[2024-03-25 08:43] LABS: #Basophils Less than 0.03 10x3/uL (0.0-0.2); %Basophils 0.4 % (0.0-1.0); %Eosinophils 1.7 % (0.0-10.0); %Lymphocytes 36.6 % (21.0-51.0); %Monocytes 6.4 % (0.0-10.0); %Neutrophils 54.7 % (42.0-75.0); Hematocrit 51.7 % (42.0-52.0); Hemoglobin 16.9 g/dL (14.0-18.0); Mean Corpuscular HGB CONC 32.7 g/dL (32.0-36.0); Mean Corpuscular Hemoglobin 30.2 pg (27.0-31.0); Mean Corpuscular Volume 92.5 fL (78.0-98.0); Mean Platelet Volume 8.9 fL (7.4-10.4); Platelet Count 235 10x3/uL (130-400); RBC Distribution Width 13.4 % (11.5-14.5); Red Blood Cell (RBC) Count 5.59 mill/uL (4.70-6.10)
[2024-03-25 09:04] LABS: Hemoglobin A1c 5.6 % (4.0-6.0)
[2024-03-25] MEDS: FLU (Fluad Triv) TS24-25 (65UP)/MF59C/PF 45 MCG/0.5 ML Syringe IM ONE (09:07)
[2024-03-25 09:13] LABS: Anion Gap 15 mmol/L (10-20); BUN (Urea Nitrogen) 7 mg/dL (8.4-25.7); Calc. Creatinine Clearance 77 mL/min (70-130); Calcium 10.6 mg/dL (7.8-10.44); Carbon Dioxide 22 mmol/L (23-31); Chloride 109 mmol/L (98-107); Estimated GFR 92; Glucose 76 mg/dL (80-115); Sodium 142 mmol/L (136-145)
[2024-03-25 12:16] LABS: Amphetamine Not Detected (NotDetected); Barbiturates Screen Not Detected (NotDetected); Benzodiazepine Screen Not Detected (NotDetected); Cocaine Metabolite Screen Not Detected (NotDetected); Methadone Not Detected (NotDetected); Methamphetamine Not Detected (NotDetected); Opiate Screen Not Detected (NotDetected); Oxycodone Screen Not Detected (NotDetected); Phencyclidine (PCP) Not Detected (NotDetected); THC/Cannabinoid Screen Not Detected (NotDetected); Tricyclic Screen Not Detected (NotDetected)
[2024-03-26 03:50] LABS: #Basophils 0.03 10x3/uL (0.0-0.2); %Basophils 0.5 % (0.0-1.0); %Eosinophils 2.1 % (0.0-10.0); %Lymphocytes 40.2 % (21.0-51.0); %Monocytes 6.9 % (0.0-10.0); %Neutrophils 50.1 % (42.0-75.0); Mean Corpuscular Hemoglobin 29.7 pg (27.0-31.0); Mean Corpuscular Volume 87.3 fL (78.0-98.0); Mean Platelet Volume 8.9 fL (7.4-10.4); Platelet Count 246 10x3/uL (130-400); RBC Distribution Width 13.4 % (11.5-14.5); Red Blood Cell (RBC) Count 5.73 mill/uL (4.70-6.10)
[2024-03-26 04:06] LABS: Anion Gap 14 mmol/L (10-20); BUN (Urea Nitrogen) 10 mg/dL (8.4-25.7); Calc. Creatinine Clearance 74 mL/min (70-130); Calcium 10.7 mg/dL (7.8-10.44); Carbon Dioxide 22 mmol/L (23-31); Chloride 106 mmol/L (98-107); Estimated GFR 89; Glucose 91 mg/dL (80-115); Potassium 3.6 mmol/L (3.5-5.1); Sodium 138 mmol/L (136-145)
[2024-03-26 11:40] VITALS: BP 131/83; TEMP 98.1
== END 2024-03-26 14:02 | DRG 313 ==
LOC: ERS 13:39 → 2SE 18:00 → OBSVTOIN 03-25 15:29
PROVIDERS: ADMIT Physician Assistant; ATTEND Internal Medicine
DX: R07.89 Other chest pain (principal); I50.32 Chronic diastolic (congestive) heart failure; I69.352 Hemiplegia and hemiparesis following cerebral infarction affecting left dominant side; E11.9 Type 2 diabetes mellitus without complications; I11.0 Hypertensive heart disease with heart failure; E78.5 Hyperlipidemia, unspecified; I25.10 Atherosclerotic heart disease of native coronary artery without angina pectoris; G40.909 Epilepsy, unspecified, not intractable, without status epilepticus; E03.9 Hypothyroidism, unspecified; F32.A Depression, unspecified; D64.9 Anemia, unspecified; Z88.0 Allergy status to penicillin; Z95.5 Presence of coronary angioplasty implant and graft; E87.6 Hypokalemia
CPT/HCPCS: 36415; 36416; 70450; 71045; 78452; 80048; 80053; 80061; 80306; 83036; 83880; 84145; 84484; 85025; 90653; 93005; 93010; 93017; A9500; J1650; J2785

== ENCOUNTER 2025-06-14 10:22 | Emergency (ER) | payer MEDICARE ==
[2025-06-14 11:21] LABS: #Basophils 0.03 10x3/uL (0.0-0.2); #Eosinophils 0.20 10x3/uL (0.0-0.7); #Monocytes 0.34 10x3/uL (0.11-0.59); #Neutrophils 2.57 10x3/uL (1.40-6.50); %Basophils 0.6 % (0.0-1.0); %Eosinophils 3.7 % (0.0-10.0); %Lymphocytes 41.1 % (21.0-51.0); %Monocytes 6.4 % (0.0-10.0); %Neutrophils 48.0 % (42.0-75.0); Hematocrit 45.3 % (42.0-52.0); Hemoglobin 15.2 g/dL (14.0-18.0); Mean Corpuscular Hemoglobin 29.2 pg (27.0-31.0); Mean Corpuscular Volume 86.9 fL (78.0-98.0); Platelet Count 244 10x3/uL (130-400); Red Blood Cell (RBC) Count 5.21 mill/uL (4.70-6.10); White Blood Cell (WBC) Count 5.35 10x3/uL (4.8-10.8)
[2025-06-14 11:46] LABS: ALT (SGPT) 39 U/L (Less than 45); AST (SGOT) 35 U/L (11-34); Albumin 4.0 g/dL (3.1-4.5); Alkaline Phosphatase 192 U/L (40-110); Anion Gap 15 mmol/L (10-20); BUN (Urea Nitrogen) 10 mg/dL (8.4-25.7); Bilirubin, Total 0.3 mg/dL (0.3-1.2); Calc. Creatinine Clearance 0 mL/min (70-130); Calcium 11.0 mg/dL (7.8-10.44); Carbon Dioxide 24 mmol/L (23-31); Chloride 104 mmol/L (98-107); Globulin 4.0 g/dL (2.4-3.5); Glucose 84 mg/dL (80-115); Potassium 4.5 mmol/L (3.5-5.1); Sodium 138 mmol/L (136-145)
== END 2025-06-14 18:48 | disposition home or self-care (01) ==
LOC: ERS 10:22
DX: R07.89 Other chest pain (principal); I10 Essential (primary) hypertension; E11.9 Type 2 diabetes mellitus without complications; I25.2 Old myocardial infarction; E03.9 Hypothyroidism, unspecified; I25.10 Atherosclerotic heart disease of native coronary artery without angina pectoris; F17.220 Nicotine dependence, chewing tobacco, uncomplicated; Z79.82 Long term (current) use of aspirin; Z79.899 Other long term (current) drug therapy; Z79.890 Hormone replacement therapy; Z79.84 Long term (current) use of oral hypoglycemic drugs
CPT/HCPCS: 36415; 71045; 80053; 84484; 85025; 93005; 94760